=== PATIENT | female | born 1970 | race Caucasian/White ===

== ENCOUNTER 2025-06-22 19:13 | Emergency (ER) | payer OTHER, SELFPAY ==
[2025-06-22 19:23] VITALS: BP 179/84
[2025-06-22 19:59] LABS: Hematocrit 40.0 % (37.0-47.0); Hemoglobin 14.1 g/dL (12.0-16.0); Mean Corp Hgb Conc. 35.3 g/dL (33.0-37.0); Mean Corpuscular Volume 93.0 fL (81.0-99.0); Nucleated Red Blood Cells % 0 %; Platelet Count 245 10^3/uL (130-400); Red Cell Dist. Width 12.0 % (11.5-14.5)
[2025-06-22 20:22] LABS: ALT (SGPT) 26 U/L (0-35); AST (SGOT) 28 U/L (14-36); Albumin 4.1 g/dl (3.5-5.0); Alkaline Phosphatase 77 U/L (38-126); Blood Urea Nitrogen 14 mg/dl (7-17); Calcium 9.5 mg/dl (8.4-10.2); Carbon Dioxide 28 mmol/L (22-30); Chloride 105 mmol/L (98-107); Glucose 90 mg/dl (70-99); Lipase 146 U/L (23-300); Potassium 3.8 mmol/L (3.5-5.1); Sodium 136 mmol/L (135-145); Total Protein 7.1 g/dl (6.3-8.2); eGFR > 60.00
[2025-06-22 20:33] LABS: Troponin I < 0.012 ng/ml
[2025-06-22 23:27] VITALS: BP 152/68
--- NOTE | 2025-06-22 23:55 | ED.GENMED ---
History of Present Illness
General
Chief Complaint: Blood Pressure Problem
Source: patient
Exam Limitations: none
Time Seen by Provider: 06/22/25 23:24
History of Present Illness
History of Present Illness:
55yoF with a history of coronary artery disease s/p PCI, hypertension, and hyperlipidemia presenting for evaluation of elevated blood pressure. Patient's sister is a nurse who checked her blood pressure this afternoon which was elevated. Patient
subsequently developed a headache and had an episode of vomiting. She called her PCP who advised her to recheck her BP which spiked to 200s systolic. She was then instructed to come to the ED for evaluation. She continues to have a headache but
states it is better. Headache is currently rated as a 5/10 in severity. She had some minor left shoulder discomfort earlier today which has resolved. She denies any chest pain or shortness of breath. Patient is now requesting to be discharged
stating she feels much better. She follows with [facility] cardiology. She currently takes carvedilol 12.5 mg twice daily as well as losartan/HCTZ combo 50mg/12.5mg.
Phy Exam
General Physical Exam
General Presentation: well appearing and no apparent distress
General Skin: warm and dry
General Habitus: normal
General Mental: alert
ENT Exam
ENT Exam: normocephalic
Cardiovascular Exam
Cardiovascular Exam: regular rate/rhythm and no murmur
Pulmonary Exam
Pulmonary Exam: lungs clear, no respiratory distress, no rales, no crackles, no rhonchi and no wheezing
Neurological Exam
Neurological Exam: alert
[place] Coma Scale
Eye Opening: Spontaneous
Verbal Response: Oriented
Motor Response: Obeys Commands
GCS Total Score: 15
Skin Exam
Skin Exam: normal color and warm/dry
Psychiatric Exam
Psychiatric Exam: normal mood/affect
Course
Orders/Labs/Results
Orders:
Orders
06/22/25 19:31
Electrocardiogram (*1) Urgent
Reason for Study: Other
Other Reason for Exam: L shoulder pain
CT Head W/o Iv Contrast Urgent
Comment:
Reason For Exam: headache, N/V
06/22/25 19:32
EKG- Treatment ONCE
06/22/25 19:50
Complete Blood Count/With Diff Urgent
Comprehensive Metabolic Panel Urgent
Lipase Urgent
Troponin I Urgent
Abnormal Lab Results
06/22/25
19:50
WBC 11.1 H 10^3/uL
(4.8-10.8)
MCH 32.8 H pg
(27.0-31.0)
Abs Immat Gran (auto) 0.1 H 10^3/uL
(0-0.05)
Absolute Neuts (auto) 6.9 H 10^3/uL
(1.4-6.5)
Absolute Monos (auto) 0.9 H 10^3/uL
(0.1-0.6)
Immature Gran % 0.6 H %
(0-0.5)
06/22/25 19:50
06/22/25 19:50
Vital Signs
Initial and Last Documented VS:
Initial Vital Signs
Temp Pulse Resp BP Pulse Ox
98.0 F 87 16 179/84 97
06/22/25 19:23 06/22/25 19:23 06/22/25 19:23 06/22/25 19:23 06/22/25 19:23
Last Documented Vital Signs
Temp Pulse Resp BP Pulse Ox
98.0 F 83 18 152/68 93
06/22/25 19:23 06/22/25 23:27 06/22/25 23:27 06/22/25 23:27 06/22/25 23:57
MDM/Problems Addressed
Differential Diagnosis Includes:
55yoF here with elevated BP. C/o headache which is improving. Had L shoulder discomfort earlier which has resolved. BP 179/84 in triage and 152/68 upon arrival to her exam room. She is well-appearing in no distress. Exam is reassuring.
Differential diagnosis includes but is not limited to: Asymptomatic hypertension, hypertensive urgency, hypertensive emergency, ACS, panic attack
Workup initiated in triage. EKG shows normal sinus rhythm without ischemic changes and troponin within normal limits. Renal function normal. CT head negative. No signs of end organ dysfunction on lab work. Patient states she feels significantly
improved and is requesting to be discharged. Patient advised to monitor her blood pressure at home. She was instructed to follow-up with her PCP and company doctor. ED return precautions reviewed. Patient in agreement with plan and was discharged
in stable condition.
*Pulse Oximetry
SaO2: 93
Oxygen Mode of Delivery: Room air
Patient hypoxic: no
*EKG
Interpreted by ED Provider?: Yes
EKG Intrepretation Date: 06/22/25
Heart Rate: 82
Rate: normal
Rhythm: sinus
[place]: normal axis
Interval: normal interval
QRS Pattern: normal QRS
Ischemia: no ischemia
*Critical Care Note
Total Time (30-74mins, 75-104mins- exclusive of procedures): Not Applicable
ED Attending Note
-
Portions of this chart may have been created with voice recognition software.� Occasional wrong word or��sound alike� substitutions may have occurred due to the inherent limitations of voice recognition software.
Discharge Plan
Departure
Patient Disposition: Home (Routine Discharge)
Date of Disposition: 06/22/25
Time of Disposition: 23:57
Patient with high blood pressure during this ER visit?: Yes
Discharge Problem:
Elevated blood pressure reading
Instructions: High Blood Pressure (DC)
Referrals:
NONE,* [Family Provider, Internal Medicine]
Activity Restrictions/Additional Instructions:
Continue taking your home blood pressure medications. You should check your blood pressure once daily and keep a log.
Please follow-up with your family doctor and company doctor next week. Return to the ER with any worsening symptoms including any chest pain, severe headache, or stroke-like symptoms.
Interventions
Interventions:
*Risk Screen - Suicide Last Done: 06/22/25 23:30
*General Assessment Last Done: 06/22/25 23:30
*Neglect/Abuse Screening Last Done: 06/22/25 23:30
*ED COVID-19 Vaccine History Last Done: 06/22/25 23:30
*Nursing Disposition Last Done: 06/23/25 00:01
HO-Ixfzcq-Gfjefahejf Assessment Last Done: 06/22/25 23:30
ED- Cardiac Assessment Last Done: 06/22/25 23:30
ED- Neurological Assessment Last Done: 06/22/25 23:30
ED- Pulmonary Assessment Last Done: 06/22/25 23:30
Discharge Date and Time
Discharge Date/Time: 06/23/25 00:01
Print Language: [place]
== END 2025-06-23 00:01 | disposition home or self-care (01) ==
LOC: EMR 19:13
PROVIDERS: Emergency Medicine; EMERGENCY PHYSICIAN Emergency Medicine
DX: I10 Essential (primary) hypertension (principal); I25.10 Atherosclerotic heart disease of native coronary artery without angina pectoris; E78.00 Pure hypercholesterolemia, unspecified; Z79.899 Other long term (current) drug therapy; Z95.5 Presence of coronary angioplasty implant and graft
CPT/HCPCS: 99284; 70450; 80053; 83690; 84484; 85025; 93005